=== PATIENT | male | born 1955 | race Caucasian/White ===

== ENCOUNTER 2020-09-10 20:15 | Observation (INO) | payer MEDICARE, OTHER ==
[~2020-09-10] VITALS: Ht 177.8 cm; Wt 108.9 kg
[~2020-09-10 20:15] MED LIST: CALCIUM CARBON650 MG PO; CORDARONE 200M200 MG PO; CYMBALTA60 MG PO; ELIQUIS 5 MG TAB5 MG PO; HYDROCODON-ACE1 EAC2 PO; IMITREX100 MG PO; LIPITOR TAB 2020 MG PO; MIDODRINE HCL5 MG PO; MULTIVITAMINS1 EAC1 PO; PACERONE400 MG PO
[2020-09-10 20:34] LABS: HEMOGLOBIN 15.4 gm/dl (14.0-17.5); RED BLOOD COUNT 5.37 M/UL (4.20-5.50); WHITE BLOOD COUNT 4.9 K/UL (4.5-11.0)
[2020-09-10 20:55] LABS: BUN/CREATININE RATIO 24 (0-10)
[2020-09-11] MEDS ORDERED: OMEPRAZOLE40 MG PO (02:45)
[2020-09-11 06:28] LABS: HEMOGLOBIN 14.7 gm/dl (14.0-17.5); RED BLOOD COUNT 5.14 M/UL (4.20-5.50); WHITE BLOOD COUNT 4.3 K/UL (4.5-11.0)
[2020-09-11 06:59] LABS: BUN/CREATININE RATIO 21 (0-10)
[2020-09-11] MEDS ORDERED: ATORVASTATIN CA20 MG PO (11:17)
[2020-09-11] MEDS ORDERED: ASPIRIN EC81 MG PO (11:17)
== END 2020-09-11 16:34 | disposition home or self-care (01) ==
LOC: ER1 20:15 → MED SURG 4 09-11 01:24 → CDU 09-11 01:24 → MED SURG 4 09-11 02:16
PROVIDERS: Emergency Medicine; ADMIT Internal Medicine
DX: G45.9 Transient cerebral ischemic attack, unspecified (principal); I48.91 Unspecified atrial fibrillation; E66.01 Morbid (severe) obesity due to excess calories; I10 Essential (primary) hypertension; E78.5 Hyperlipidemia, unspecified; K21.9 Gastro-esophageal reflux disease without esophagitis; G40.909 Epilepsy, unspecified, not intractable, without status epilepticus; E11.9 Type 2 diabetes mellitus without complications; G43.909 Migraine, unspecified, not intractable, without status migrainosus; Z86.74 Personal history of sudden cardiac arrest; Z83.3 Family history of diabetes mellitus; Z80.1 Family history of malignant neoplasm of trachea, bronchus and lung; Z95.810 Presence of automatic (implantable) cardiac defibrillator; Z96.82 Presence of neurostimulator; Z20.822 Contact with and (suspected) exposure to COVID-19; Z98.84 Bariatric surgery status; Z68.34 Body mass index [BMI] 34.0-34.9, adult; Z88.6 Allergy status to analgesic agent; Z79.01 Long term (current) use of anticoagulants; Z79.899 Other long term (current) drug therapy
CPT/HCPCS: 36415; 70450; 70496; 70498; 80053; 80061; 81001; 82962; 83036; 83605; 83690; 83735; 83880; 84439; 84443; 84481; 85025; 85610; 85730; 86140; 87040; 93005; 99285; G0378; Q9967; U0002